=== PATIENT | male | born 1950 | race Asian ===

== ENCOUNTER 2018-10-26 07:21 | Day surgery (SDC) | payer MEDICARE, OTHER ==
[~2018-10-26] VITALS: Ht 165.1 cm; Wt 68.4 kg
[~2018-10-26 07:21] MED LIST: ATOR20TA86 PO; CARV25 PO; ESCI10TA PO; FERR-89 PO; LISI-662 PO; METF-960 PO; NITR.4 SL; OXYB5 PO; PANT40TA25 PO; RANI150T7 PO; SITA50 PO
[2018-10-26] MEDS ORDERED: SODIUM CHLORIDE 0.9% 1,000 ML IV ONE ×2 (08:23→08:30)
[2018-10-26 08:44] LABS: GLUCOMETER DEV NAME(LOC) SDS.; GLUCOSE,POINT OF CARE 131 MG/DL (70-110)
[2018-10-26] MEDS ORDERED: FentaNYL CITRATE-PF 100 MCG/2 ML VIAL ONE (09:06)
[2018-10-26] MEDS ORDERED: MIDAZOLAM HCL 5 MG/ML VIAL ONE (09:07)
[2018-10-26] MEDS ORDERED: ASPI81 PO (09:18)
[2018-10-26] MEDS ORDERED: LISI-661 PO (09:20)
== END 2018-10-26 11:15 | disposition home or self-care (01) ==
LOC: SURGERY 07:21
PROVIDERS: ATTEND Internal Medicine Gastroenterology
DX: K62.7 Radiation proctitis (principal); E78.00 Pure hypercholesterolemia, unspecified; Z87.891 Personal history of nicotine dependence; Z95.5 Presence of coronary angioplasty implant and graft; Z85.46 Personal history of malignant neoplasm of prostate; Z86.73 Personal history of transient ischemic attack (TIA), and cerebral infarction without residual deficits
CPT/HCPCS: 45382; 82962; J2250; J3010; J7030

== ENCOUNTER 2019-04-01 10:11 | Emergency (ER) | payer MEDICARE, OTHER ==
[~2019-04-01] VITALS: Ht 167.6 cm; Wt 68.2 kg
[~2019-04-01 10:11] MED LIST changes: +ASPI81 PO; +LISI-661 PO; -LISI-662 PO; -NITR.4 SL; -RANI150T7 PO
[2019-04-01 10:32] LABS: GLUCOSE,POINT OF CARE 129 MG/DL (70-110)
[2019-04-01] MEDS ORDERED: ONDANSETRON HCL 4 MG/2 ML VIAL IVP ONE (10:45)
[2019-04-01] MEDS ORDERED: SODIUM CHLORIDE 0.9% 1,000 ML IV ONE (10:45)
[2019-04-01] MEDS ORDERED: MECLIZINE HCL 25 MG TABLET PO ONE (10:45)
[2019-04-01 11:46] VITALS: BP 166/78
[2019-04-01 12:14] LABS: BASOPHILS % (AUTO) 0.4 % (0.0-2.0); EOSINOPHILS % (AUTO) 1.6 % (1.0-6.0); HEMATOCRIT 31.7 % (41-53); HEMOGLOBIN 10.9 g/dL (13.5-17.5); LYMPHOCYTES # (AUTO) 0.8 K/uL (1.0-4.8); LYMPHOCYTES % (AUTO) 10.3 % (22.0-44.0); MEAN CORPUSCULAR HEMOGLOBIN 30.4 pg (26.0-34.0); MEAN CORPUSCULAR HGB CONC 34.3 G/dL (31.0-37.0); MEAN CORPUSCULAR VOLUME 89 fL (80-100); MONOCYTES # (AUTO) 0.7 K/uL (0.1-1.0); MONOCYTES % (AUTO) 8.3 % (2.0-9.0); NEUTROPHILS # (AUTO) 6.4 K/uL (1.8-7.7); NEUTROPHILS % (AUTO) 79.4 % (40.0-70.0); PLATELET COUNT (AUTO) 224 K/uL (150-450); RED BLOOD CELL COUNT(AUTO) 3.57 MIL/uL (4.50-5.90); RED CELL DISTRIBUTION WIDTH 13.8 % (11.5-14.5)
[2019-04-01 12:21] LABS: ANION GAP 7 mmol/L (8-16); CALCIUM, TOTAL 8.4 mg/dL (8.8-10.5); CARBON DIOXIDE 28 mmol/L (22-29); CHLORIDE 98 mmol/L (98-107); CREATININE 1.08 mg/dL (0.60-1.30); GLOMERULAR FILTR. RATE CALC > 60 mL/min (>60); GLUCOSE,RANDOM 130 mg/dL (70-110); POTASSIUM 4.1 mmol/L (3.5-5.1); SODIUM SERUM 133 mmol/L (136-145); UREA NITROGEN, BLOOD 21 mg/dL (7-18)
== END 2019-04-01 12:42 | disposition home or self-care (01) ==
LOC: EMS 10:16
DX: R42 Dizziness and giddiness (principal); E78.00 Pure hypercholesterolemia, unspecified; I10 Essential (primary) hypertension; Z86.73 Personal history of transient ischemic attack (TIA), and cerebral infarction without residual deficits; Z85.46 Personal history of malignant neoplasm of prostate; Z90.49 Acquired absence of other specified parts of digestive tract; Z79.899 Other long term (current) drug therapy
CPT/HCPCS: 36415; 70450; 80048; 82962; 85025; 93005; 96361; 96374; 99284; J2405; J7030

== ENCOUNTER 2021-11-14 17:04 | Emergency (ER) | payer MEDICARE, MEDICAID ==
[~2021-11-14] VITALS: Ht 167.6 cm; Wt 78.6 kg
[~2021-11-14 17:04] MED LIST changes: +ASPI-1450 PO; -ASPI81 PO; +ESCI-8 PO; -ESCI10TA PO; -FERR-89 PO; +FERR325T27 PO; -LISI-661 PO; +LISI-893 PO; +METF-1211 PO; -METF-960 PO; -OXYB5 PO; +OXYB5TAB20 PO; +PANT-31 PO; -PANT40TA25 PO
[2021-11-14] MEDS ORDERED: LORA10TA7 PO (17:20)
[2021-11-14] MEDS ORDERED: FURO20 PO (17:20)
[2021-11-14] MEDS ORDERED: AMLO-257 PO (17:20)
[2021-11-14] MEDS ORDERED: AMPICILLIN SODIUM/SULBACTAM NA 1.5 GM in SODIUM CHLORIDE 0.9% 50 ML IV ONE (18:45)
[2021-11-14] MEDS ORDERED: SODIUM CHLORIDE 0.9% 500 ML IV ONE (18:45)
[2021-11-14] MEDS ORDERED: DOCU100C33 PO (18:47)
[2021-11-14] MEDS ORDERED: FURO40TA5 PO (18:47)
[2021-11-14] MEDS ORDERED: LISI20TA24 PO (18:47)
[2021-11-14] MEDS ORDERED: ACET325T51 PO (18:47)
[2021-11-14] MEDS ORDERED: ATOR40TA71 PO (18:47)
[2021-11-14] MEDS ORDERED: NITR0.4T50 SL (18:47)
[2021-11-14 19:01] LABS: BASOPHILS % (AUTO) 0.6 % (0.0-2.0); EOSINOPHILS % (AUTO) 2.1 % (1.0-6.0); LYMPHOCYTES # (AUTO) 1.7 K/uL (1.0-4.8); LYMPHOCYTES % (AUTO) 16.1 % (22.0-44.0); MEAN CORPUSCULAR HEMOGLOBIN 29.6 pg (26.0-34.0); MEAN CORPUSCULAR HGB CONC 34.3 G/dL (31.0-37.0); MEAN CORPUSCULAR VOLUME 86 fL (80-100); MONOCYTES # (AUTO) 1.3 K/uL (0.1-1.0); MONOCYTES % (AUTO) 12.7 % (2.0-9.0); NEUTROPHILS # (AUTO) 7.2 K/uL (1.8-7.7); NEUTROPHILS % (AUTO) 68.5 % (40.0-70.0); PLATELET COUNT (AUTO) 237 K/uL (150-450); RED BLOOD CELL COUNT(AUTO) 4.06 MIL/uL (4.50-5.90); RED CELL DISTRIBUTION WIDTH 13.3 % (11.5-14.5)
[2021-11-14 19:08] LABS: CALCIUM, TOTAL 8.9 mg/dL (8.8-10.5); CREATININE 1.19 mg/dL (0.60-1.30); POTASSIUM 3.5 mmol/L (3.5-5.1)
[2021-11-14 19:14] LABS: ALBUMIN 3.4 g/dL (3.4-5.0); BILIRUBIN,TOTAL 0.6 mg/dL (0.1-1.0); TOTAL PROTEIN, SERUM 7.3 g/dL (6.4-8.2)
[2021-11-14] MEDS ORDERED: IOHEXOL 300 MG/ML 100 ML VIAL ONE (19:29)
[2021-11-14] MEDS ORDERED: SODIUM CHLORIDE 0.9% 100 ML ONE (19:29)
[2021-11-14] MEDS ORDERED: AMOX1TAB16 PO (21:51)
[2021-11-14 22:03] VITALS: BP 137/70
== END 2021-11-14 22:10 | disposition home or self-care (01) ==
LOC: EMS 17:11
DX: L03.213 Periorbital cellulitis (principal); I10 Essential (primary) hypertension; E78.00 Pure hypercholesterolemia, unspecified; F32.9 Major depressive disorder, single episode, unspecified; F41.9 Anxiety disorder, unspecified; Z79.899 Other long term (current) drug therapy
CPT/HCPCS: 36415; 70481; 80053; 82962; 85025; 87040; 96365; 99285; J0295; J7040; J7050 ×2; Q9967

== ENCOUNTER 2022-08-11 13:10 | Emergency (ER) | payer MEDICARE, MEDICAID ==
[~2022-08-11] VITALS: Ht 167.6 cm; Wt 75.0 kg
[~2022-08-11 13:10] MED LIST changes: +ACET325T51 PO; +AMLO-257 PO; +AMOX1TAB16 PO; -ASPI-1450 PO; -ATOR20TA86 PO; +ATOR40TA71 PO; +DOCU100C33 PO; +FURO40TA5 PO; -LISI-893 PO; +LISI20TA24 PO; +LORA10TA7 PO; -METF-1211 PO; +NITR0.4T50 SL
[2022-08-11 15:24] LABS: BASOPHILS % (AUTO) 0.2 % (0.0-2.0); EOSINOPHILS % (AUTO) 1.8 % (1.0-6.0); HEMATOCRIT 38.1 % (41-53); HEMOGLOBIN 12.5 g/dL (13.5-17.5); LYMPHOCYTES # (AUTO) 1.3 K/uL (1.0-4.8); LYMPHOCYTES % (AUTO) 13.7 % (22.0-44.0); MEAN CORPUSCULAR HEMOGLOBIN 28.6 pg (26.0-34.0); MEAN CORPUSCULAR HGB CONC 32.7 G/dL (31.0-37.0); MEAN CORPUSCULAR VOLUME 88 fL (80-100); MONOCYTES # (AUTO) 1.1 K/uL (0.1-1.0); MONOCYTES % (AUTO) 10.9 % (2.0-9.0); NEUTROPHILS # (AUTO) 7.2 K/uL (1.8-7.7); NEUTROPHILS % (AUTO) 73.4 % (40.0-70.0); PLATELET COUNT (AUTO) 211 K/uL (150-450); RED BLOOD CELL COUNT(AUTO) 4.35 MIL/uL (4.50-5.90); RED CELL DISTRIBUTION WIDTH 13.2 % (11.5-14.5)
[2022-08-11 15:34] LABS: CREATININE 1.21 mg/dL (0.60-1.30); POTASSIUM 3.8 mmol/L (3.5-5.1)
[2022-08-11 15:37] LABS: PROTHROMBIN TIME 10.7 SEC (9.4-11.6)
[2022-08-11 15:39] LABS: ALBUMIN 3.8 g/dL (3.4-5.0); BILIRUBIN,TOTAL 0.7 mg/dL (0.1-1.0); TOTAL PROTEIN, SERUM 7.5 g/dL (6.4-8.2)
[2022-08-11 15:42] LABS: LACTIC ACID 1.7 mmol/L (0.4-2.0)
[2022-08-11] MEDS ORDERED: IOHEXOL 350 MG/ML 100 ML VIAL ONE (16:09)
[2022-08-11] MEDS ORDERED: SODIUM CHLORIDE 0.9% 100 ML ONE (16:09)
[2022-08-11 17:39] LABS: APPEARANCE,URINE CLEAR (CLEAR); BILIRUBIN,URINE NEGATIVE (NEGATIVE); GLUCOSE, URINE (UA) NEGATIVE (NEGATIVE); KETONES,URINE NEGATIVE (NEGATIVE); LEUKOCYTE ESTERASE ,URINE NEGATIVE (NEGATIVE); NITRATE,URINE NEGATIVE (NEGATIVE); OCCULT BLOOD,URINE TRACE (NEGATIVE); PROTEIN,URINE NEGATIVE (NEGATIVE); SPECIFIC GRAVITIY, URINE 1.013 (1.003-1.030); UROBILINOGEN,URINE <=1.0 mg/dL (<=1.0)
[2022-08-11 17:58] LABS: BACTERIA,URINE Rare /HPF (None Seen); SQUAMOUS EPITHELIAL CELL,UR Rare /LPF (None Seen); WBC,URINE 0-2 /HPF (0-5)
[2022-08-11] MEDS ORDERED: FAMO20 PO (21:03)
[2022-08-11 21:18] VITALS: BP 140/79
[2022-08-13 14:07] LABS: HEPATITIS C AB (EIA) Non Reactive (Non Reactive)
== END 2022-08-11 21:29 | disposition home or self-care (01) ==
LOC: EMS 13:12
DX: R10.84 Generalized abdominal pain (principal); F41.9 Anxiety disorder, unspecified; F32.A Depression, unspecified; E78.00 Pure hypercholesterolemia, unspecified; I10 Essential (primary) hypertension; Z90.49 Acquired absence of other specified parts of digestive tract
CPT/HCPCS: 99285; 74177; 76705; 80053; 81001; 82962; 83605; 85025; 85610; 85730; 36415; 80074; 93005; Q9967; J7050

== ENCOUNTER 2024-06-01 12:07 | Emergency (ER) | payer MEDICARE, MEDICAID ==
[~2024-06-01] VITALS: Ht 167.6 cm; Wt 68.2 kg
[~2024-06-01 12:07] MED LIST changes: +ACET-3862 PO; -ACET325T51 PO; +AMOX-457 PO; -AMOX1TAB16 PO; +FAMO20 PO
[2024-06-01 12:31] VITALS: TEMP 98.2
[2024-06-01] MEDS: PredniSONE 20 MG TABLET PO ONE (13:48)
[2024-06-01] MEDS: FAMOTIDINE 20 MG TABLET PO ONE (13:48)
[2024-06-01] MEDS: DiphenhydrAMINE HCL 50 MG/ML VIAL IM ONE (13:48)
[2024-06-01] MEDS ORDERED: METH4TAB3 PO (15:57)
[2024-06-01] MEDS ORDERED: DIPH50CA37 PO (15:57)
[2024-06-01] MEDS ORDERED: FAMO20 PO (15:57)
[2024-06-01 16:20] VITALS: BP 118/72; PULSE 64; RESP 18; O2SAT 99
== END 2024-06-01 16:44 | disposition home or self-care (01) ==
LOC: EMS 12:07
DX: L50.9 Urticaria, unspecified (principal); I10 Essential (primary) hypertension; E78.00 Pure hypercholesterolemia, unspecified; F32.A Depression, unspecified; F41.9 Anxiety disorder, unspecified; Z79.84 Long term (current) use of oral hypoglycemic drugs; Z90.49 Acquired absence of other specified parts of digestive tract; Z79.899 Other long term (current) drug therapy
CPT/HCPCS: 99283; 96372; J1200; J7512

== ENCOUNTER 2024-06-04 09:17 | Emergency (ER) | payer MEDICARE, MEDICAID ==
[~2024-06-04] VITALS: Ht 167.6 cm; Wt 74.1 kg
[~2024-06-04 09:17] MED LIST changes: +DIPH50CA37 PO; +METH4TAB3 PO
[2024-06-04 09:32] VITALS: TEMP 98.1
[2024-06-04] MEDS: DEXAMETHASONE SOD PHOS 4 MG/ML 5 ML VIAL IM ONE (10:39)
[2024-06-04] MEDS: DiphenhydrAMINE HCL 50 MG/ML VIAL IM ONE (10:39)
[2024-06-04] MEDS ORDERED: PRED-554 PO (12:09)
[2024-06-04] MEDS ORDERED: DIPH-1243 PO (12:11)
[2024-06-04 12:30] VITALS: BP 118/67; PULSE 74; RESP 14; O2SAT 98
== END 2024-06-04 12:54 | disposition home or self-care (01) ==
LOC: EMS 09:17
DX: L50.0 Allergic urticaria (principal); F41.9 Anxiety disorder, unspecified; F32.A Depression, unspecified; E78.00 Pure hypercholesterolemia, unspecified; I10 Essential (primary) hypertension; Z79.52 Long term (current) use of systemic steroids; Z79.84 Long term (current) use of oral hypoglycemic drugs; Z79.899 Other long term (current) drug therapy; Z85.46 Personal history of malignant neoplasm of prostate; Z90.49 Acquired absence of other specified parts of digestive tract
CPT/HCPCS: 99284; 96372; J1100; J1200